=== PATIENT | female | born 1965 | race African-American/Black ===

== ENCOUNTER 2017-07-10 12:31 | Inpatient (IN) | payer BC ==
[2017-07-10 12:48] VITALS: BMI 37.3
--- NOTE | 2017-07-10 14:40 | HP ---
CIWA Score - CIWA Score Nausea/Vomitin-No Nausea/No Vomiting Muscle Tremors: 3 Anxiety: 4-Mod. Anxious/Guarded Agitation: 4-Moderately Restless Paroxysmal Sweats: 1-Minimal Palms Moist Orientation: 0-Oriented Tacttile Disturbances: 0-None Auditory Disturbances: 0-None Visual Disturbances: 0-None Headache: 2-Mild CIWA-Ar Total Score: 14 Admission ROS BHS - HPI Chief Complaint: WITHDRAWAL SX FROM ALCOHOL Allergies/Adverse Reactions: Allergies Allergy/AdvReac Type Severity Reaction Status Date / Time No Known Allergies Allergy Verified 07/10/17 13:39 History of Present Illness: 52 Y/O AA/FEMALE WITH A HX OF ALCOHOL AND CRACK/COCAINE DEPENDENCE SEEKING DETOX TX. THIS IS PT'S FIRST TIME HERE. Exam Limitations: Clinical Condition - Ebola screening Have you traveled outside of the country in the last 21 days: No Have you had contact with anyone from an Ebola affected area: No Have you been sick,other than usual withdrawal symptoms: No Do you have a fever: No - Review of Systems Constitutional: Night Sweats, Changes in sleep (TAKES SLEEPING MED) EENT: reports: Blurred Vision (WEARS GLASSES), Tearing, Dental Problems (UPPER PATIAL PLATE) Respiratory: reports: No Symptoms reported Cardiac: reports: Lightheadedness, Palpitations (IN THE PAST), Chest Tightness GI: reports: Diarrhea : reports: No Symptoms Reported Musculoskeletal: reports: Muscle Pain Integumentary: reports: No Symptoms Reported Neuro: reports: Headache Endocrine: reports: No Symptoms Reported Hematology: reports: Other (SICKLE CELL TRAIT;HGB C TRAIT) Psychiatric: reports: Orientated x3, Anxious, Depressed Other Systems: Reviewed and Negative Patient History - Patient Medical History Hx Anemia: Yes (IRON SUPPLEMENT IN THE PAST) Hx Asthma: No Hx Chronic Obstructive Pulmonary Disease (COPD): No Hx Cardiac Disorders: Yes (SVT-ABLATION TREATMENT IN JUNE 2013) Hx Hypertension: Yes (on medication-ON VERAPAMIL 240 MG PO DAILY) Hx Hypercholesterolemia: No Hx Pacemaker: No HX Cerebrovascular Accident: No Hx Seizures: No Hx Diabetes: No Hx Gastrointestinal Disorders: Yes (DYSPEPSIA-NO MEDS) Hx Genitourinary Disorders: Yes (UTI IN THE PAST) Hx Sexually Transmitted Disorders: Yes (gonnorhea, syphillis, herpes) Hx Renal Disease (ESRD): No Hx Thyroid Disease: No Hx Human Immunodeficiency Virus (HIV): No (NEGATIVE HX) Hx Hepatitis C: No Hx Depression: Yes (ON MEDS) Hx Suicide Attempt: Yes (one attempt [id number] slash wrist;DENIES CURRENT S/I) Hx Schizophrenia: No - Patient Surgical History Past Surgical History: Yes Hx Neurologic Surgery: No Hx Cataract Extraction: No Hx Cardiac Surgery: Yes (cardiac ablation 2013) Hx Lung Surgery: No Hx Breast Surgery: No Hx Breast Biopsy: No Hx Abdominal Surgery: Yes (Fibrystic cyst) Hx Appendectomy: No Hx Cholecystectomy: No Hx Genitourinary Surgery: No Hx Section: Yes (X6) Hx Orthopedic Surgery: No Other Surgical History: Biopst left cavicle Anesthesia Reaction: No - PPD History Previous Implant?: Yes Documented Results: Positive w/o proof Implanted On Prior [facility] Admission?: No Results: CXR TBD PPD to be Administered?: No - Reproductive History Patient is a Female of Child Bearing Age (11 -55 yrs old): Yes Last Menstrual Period: 09/25/11 Patient : No - Smoking Cessation Smoking history: Current every day smoker Have you smoked in the past 12 months: Yes Aproximately how many cigarettes per day: 6 Hx Chewing Tobacco Use: No Initiated information on smoking cessation: Yes 'Breaking Loose' booklet given: 07/10/17 - Substance & Tx. History Hx Alcohol Use: Yes (BEER) Hx Substance Use: Yes (COCAINE) Substance Use Type: Alcohol, Cocaine Hx Substance Use Treatment: Yes (LAST TX AT [facility]) - Substances Abused Alcohol Route: Oral Frequency: 3-6 times per week Amount used: 6Pk- 120z Age of first use: 16 Date of Last Use: 07/09/17 Cocaine Route: Smoking Frequency: 1-3 times last 30 days Amount used: $70 Age of first use: 21 Date of Last Use: 07/09/17 Family Disease History - Family Disease History Family Disease History: Other: Mother (HTN;ALCOHOLISM) Other Family History: AUNTS AND UNCLES WITH ALCOHOLISM Admission Physical Exam BHS - Vital Signs Vital Signs: Vital Signs - 24 hr 07/10/17 12:44 Temperature 97.9 F Pulse Rate 62 Respiratory 20 Rate Blood Pressure 143/81 - Physical General Appearance: Yes: Moderate Distress, Irritable, Anxious HEENTM: Yes: EOMI, Normocephalic, DALE, Pharynx Normal Respiratory: Yes: Chest Non-Tender, Lungs Clear, Normal Breath Sounds, No Respiratory Distress Neck: Yes: No masses,lesions,Nodules, Supple, Trachea in good position Breast: Yes: Breast Exam Deferred Cardiology: Yes: Regular Rhythm, Regular Rate, S1, S2 Abdominal: Yes: Normal Bowel Sounds, Non Tender, Soft, Protuberent Genitourinary: Yes: Other (N/C) Back: Yes: Within Normal Limits Musculoskeletal: Yes: full range of Motion, Gait Steady Extremities: Yes: Normal Range of Motion, Non-Tender Neurological: Yes: manager fleet II-XII NML intact, Fully Oriented, Alert, Motor Strength 5/5 Integumentary: Yes: Dry, Warm Lymphatic: Yes: Within Normal Limits - Diagnostic (1) Alcohol dependence with uncomplicated withdrawal Current Visit: Yes Status: Acute (2) Cocaine dependence, uncomplicated Current Visit: Yes Status: Acute (3) Hypertension Current Visit: Yes Status: Chronic Qualifiers: Hypertension type: essential hypertension Qualified Code(s): I10 - Essential (primary) hypertension (4) History of anemia Current Visit: Yes Status: Suspected (5) Sickle cell trait Current Visit: Yes Status: Chronic (6) Personal history of supraventricular tachycardia Current Visit: Yes Status: Resolved Cleared for Admission [facility] - Detox or Rehab [facility] Level of Care: Medically Managed Detox Regimen/Protocol: Librium S Breath Alcohol Content Breath Alcohol Content: 0 Urine Pregancy Test - Result Urine Test Results: Negative- NO Line Present Urine Drug Screen - Results Drug Screen Negative: No Urine Drug Screen Results: SAM-Cocaine
[2017-07-10] MEDS ORDERED: hydrOXYzine PAMOATE 50 MG CAPSULE (FP) PO PRN (15:04)
[2017-07-10] MEDS ORDERED: MAG HYDROX/AL HYDROX/SIMETH 30 ML UNIT-DOSE CUP PO PRN (15:04)
[2017-07-10] MEDS ORDERED: ACETAMINOPHEN 325 MG TABLET (FP) PO PRN (15:04)
[2017-07-10] MEDS ORDERED: P-EPHED 60MG/TRIPROLIDI 2.5MG TABLET PO PRN (15:04)
[2017-07-10] MEDS ORDERED: MENTHOL/PHENOL 1 EACH UD MM PRN (15:04)
[2017-07-10] MEDS ORDERED: MAGNESIUM HYDROX 2400MG/30ML ORAL SUSPENSION 30 ML CUP PO PRN (15:04)
[2017-07-10] MEDS ORDERED: chlordiazePOXIDE HCL 25 MG CAPSULE PO PRN (15:04)
[2017-07-10] MEDS ORDERED: NICOTINE POLACRILEX 2 MG GUM BC PRN (15:04)
[2017-07-10] MEDS ORDERED: MAGNESIUM CITRATE 300 ML BOTTLE PO PRN (15:04)
[2017-07-10] MEDS ORDERED: guaiFENesin/D-METHORPHAN HB 10 ML UNIT-DOSE CUPS PO PRN (15:04)
[2017-07-10] MEDS ORDERED: LOPERAMIDE HCL 2 MG CAPSULE PO PRN (15:04)
[2017-07-10] MEDS ORDERED: IBUPROFEN 400 MG TABLET (FP) PO PRN (15:04)
[2017-07-10] MEDS ORDERED: NITROGLYCERIN SUBLINGUAL 1/150 0.4 MG TAB SL PRN (15:13)
[2017-07-10] MEDS ORDERED: chlordiazePOXIDE HCL 25 MG CAPSULE PO ONE (15:45)
[2017-07-10] MEDS: METOPROLOL TARTRATE 50 MG TABLET (FP) PO SCH (18:20)
[2017-07-10] MEDS: VERAPAMIL HCL 240 MG E.R. TABLET (FP) PO SCH (18:20)
[2017-07-10] MEDS: ASPIRIN COATED 81 MG TABLET.EC PO SCH (18:20)
[2017-07-10] MEDS: NICOTINE 14 MG/24 HOURS TOPICAL PATCH TD SCH (18:25)
[2017-07-10] MEDS: chlordiazePOXIDE HCL 25 MG CAPSULE PO SCH ×2 (18:34→22:37)
[2017-07-10] MEDS ORDERED: MELATONIN 5 MG TABLETS PO PRN (22:00)
[2017-07-10] MEDS: THIAMINE HCL 100 MG TABLET (FP) PO SCH (22:37)
[2017-07-11] MEDS: chlordiazePOXIDE HCL 25 MG CAPSULE PO SCH ×4 (06:14→22:44)
[2017-07-11 10:26] LABS: HEMOGLOBIN 14.3 GM/dL (10.7-15.3); MCH 28.6 pg (25.7-33.7); MCHC 34.8 g/dl (32.0-36.0); MEAN CELL VOLUME 82.2 fl (80-96); MEAN PLT VOLUME 8.6 fl (7.5-11.1); PLATELET COUNT 268 K/MM3 (134-434); RBC 4.99 M/mm3 (3.60-5.2); RDW 15.1 % (11.6-15.6); WHITE BLOOD COUNT 6.8 K/mm3 (4.0-10.0)
[2017-07-11] MEDS: SERTRALINE HCL 50 MG TABLET (FP) PO SCH (10:29)
[2017-07-11] MEDS: METOPROLOL TARTRATE 50 MG TABLET (FP) PO SCH (10:29)
[2017-07-11] MEDS: VERAPAMIL HCL 240 MG E.R. TABLET (FP) PO SCH (10:29)
[2017-07-11] MEDS: PRENATAL VITAMINS W/ FOLIC ACID TABLET (FP) PO SCH (10:29)
[2017-07-11] MEDS: ASPIRIN COATED 81 MG TABLET.EC PO SCH (10:29)
[2017-07-11] MEDS: NICOTINE 14 MG/24 HOURS TOPICAL PATCH TD SCH (10:31)
--- NOTE | 2017-07-11 10:37 | CONSULT ---
[facility] Psychiatric Consult - Data Date of interview: 07/11/17 Admission source: [facility] Identifying data: This is 52 years old female, single mother of six, living with boyfriend, unemployed on SSI, with no psychiatric hospitalizatiojn history , with history of Alcohol, Cocaine Nicotine dependence, seeking for detos, reporting withdrawal symptoms. Substance Abuse History: Smoking history: Current every day smoker. Have you smoked in the past 12 months: Yes. Aproximately how many cigarettes per day: 6. Hx Chewing Tobacco Use: No. Initiated information on smoking cessation: Yes. 'Breaking Loose' booklet given: 07/10/17. - Substance & Tx. History. Hx Alcohol Use: Yes (BEER). Hx Substance Use: Yes (COCAINE). Substance Use Type: Alcohol, Cocaine. Hx Substance Use Treatment: Yes (LAST TX AT [facility]). - Substances Abused. Alcohol. Route: Oral. Frequency: 3-6 times per week. Amount used: 6Pk- 120z. Age of first use: 16. Date of Last Use: 07/09/17. Cocaine. Route: Smoking. Frequency: 1-3 times last 30 days. Amount used: $ 70. Age of first use: 21. Date of Last Use: 07/09/17 Medical History: HTN, Anemia history, Sickle Cell Trait history, Superventricular thachicardia hisotry. Psychiatric History: Patient reports history of depression and anxiety, no psychiatric hospitalization history, reports taking prior to admission: Zoloft 100mg po nqhs. Abilify 5mg po qhs. Denies suicidal, homicidal history Physical/Sexual Abuse/Trauma History: Denies Additional Comment: Zoloft 100mg po nqhs. Abilify 5mg po qhs Mental Status Exam - Mental Status Exam Alert and Oriented to: Place, Person Cognitive Function: Fair Patient Appearance: Well Groomed Mood: Apprehensive Affect: Mood Congruent Patient Behavior: Cooperative Speech Pattern: Appropriate Voice Loudness: Normal Thought Process: Goal Oriented Thought Disorder: Being Controlled Hallucinations: Denies Suicidal Ideation: Denies Homicidal Ideation: Denies Insight/Judgement: Fair Sleep: Difficulty falling asleep Appetite: Weight gain Muscle strength/Tone: Normal Gait/Station: Normal Additional Comments: Zoloft 100mg po nqhs. Abilify 5mg po qhs Psychiatric Findings - Problem List ([place] 1, 2,3) (1) Nicotine dependence Current Visit: Yes Status: Acute (2) Drug-induced mood disorder Current Visit: Yes Status: Acute (3) Alcohol dependence with uncomplicated withdrawal Current Visit: Yes Status: Acute (4) Cocaine dependence, uncomplicated Current Visit: Yes Status: Acute - Initial Treatment Plan Initial Treatment Plan: Zoloft 100mg po nqhs. Abilify 5mg po qhs. Vistaril 50mg po prn q4 for anxiety and agitation.
[2017-07-11 11:14] LABS: ALBUMIN 3.3 g/dl (3.4-5.0); ANION GAP 8 (8-16); BILIRUBIN,TOTAL 0.2 mg/dL (0.2-1.0); BLOOD UREA NITROGEN 9 mg/dL (7-18); CALCIUM 8.7 mg/dL (8.5-10.1); CHLORIDE 109 mmol/L (98-107); CO2 28 mmol/L (21-32); CREATININE 0.8 mg/dL (0.55-1.02); GLUCOSE,RANDOM 78 mg/dL (74-106); POTASSIUM 5.3 mmol/L (3.5-5.1); SGOT/AST 15 U/L (15-37); SGPT/ALT 21 U/L (12-78); SODIUM 145 mmol/L (136-145)
[2017-07-11 11:15] LABS: ALK PHOS 127 U/L (45-117); TOT PROT 7.5 g/dl (6.4-8.2)
[2017-07-11 11:43] LABS: SICKLE CELL SCREEN NEGATIVE (NEGATIVE)
--- NOTE | 2017-07-11 11:55 | EKG ---
Test Reason : Blood Pressure : / mmHG Vent. Rate : 061 BPM Atrial Rate : 061 BPM P-R Int : 138 ms QRS Dur : 082 ms QT Int : 450 ms P-R-T Axes : 059 029 037 degrees QTc Int : 453 ms NORMAL SINUS RHYTHM WITH SINUS ARRHYTHMIA NORMAL ECG NO PREVIOUS ECGS AVAILABLE Confirmed by JOSEPH STAHL, LISA ([id number]) on 07/11/2017 11:54:54 AM Referred By: Confirmed By:LISA RUIZ MD
--- NOTE | 2017-07-11 12:20 | PN ---
S CIWA - CIWA Score Nausea/Vomitin-Mild Nausea/No Vomiting Muscle Tremors: 4-Moderate,w/Arms Extend Anxiety: 3 Agitation: 2 Paroxysmal Sweats: 1-Minimal Palms Moist Orientation: 0-Oriented Tacttile Disturbances: 1-Very Mild Itch/Numbness Auditory Disturbances: 0-None Visual Disturbances: 0-None Headache: 0-None Present CIWA-Ar Total Score: 12 BHS Progress Note (SOAP) Subjective: sweat tremor anxiety restlessness Objective: 07/11/17 12:20 Vital Signs Temperature 98.1 F 07/11/17 11:04 Pulse Rate 79 07/11/17 11:04 Respiratory Rate 18 07/11/17 11:04 Blood Pressure 117/66 07/11/17 11:04 O2 Sat by Pulse Oximetry (%) Laboratory Last Values WBC 6.8 K/mm3 (4.0-10.0) 07/11/17 06:00 RBC 4.99 M/mm3 (3.60-5.2) 07/11/17 06:00 Hgb 14.3 GM/dL (10.7-15.3) 07/11/17 06:00 Hct 41.0 % (32.4-45.2) 07/11/17 06:00 MCV 82.2 fl (80-96) 07/11/17 06:00 MCH 28.6 pg (25.7-33.7) 07/11/17 06:00 MCHC 34.8 g/dl (32.0-36.0) 07/11/17 06:00 RDW 15.1 % (11.6-15.6) 07/11/17 06:00 Plt Count 268 K/MM3 (134-434) 07/11/17 06:00 MPV 8.6 fl (7.5-11.1) 07/11/17 06:00 Sickle Cell Screen Negative (NEGATIVE) 07/11/17 06:00 Sodium 145 mmol/L (136-145) 07/11/17 06:00 Potassium 5.3 mmol/L (3.5-5.1) H 07/11/17 06:00 Chloride 109 mmol/L (98-107) H 07/11/17 06:00 Carbon Dioxide 28 mmol/L (21-32) 07/11/17 06:00 Anion Gap 8 (8-16) 07/11/17 06:00 BUN 9 mg/dL (7-18) 07/11/17 06:00 Creatinine 0.8 mg/dL (0.55-1.02) 07/11/17 06:00 Creat Clearance w eGFR > 60 (>60) 07/11/17 06:00 Random Glucose 78 mg/dL (74-106) 07/11/17 06:00 Calcium 8.7 mg/dL (8.5-10.1) 07/11/17 06:00 Total Bilirubin 0.2 mg/dL (0.2-1.0) 07/11/17 06:00 AST 15 U/L (15-37) 07/11/17 06:00 ALT 21 U/L (12-78) 07/11/17 06:00 Alkaline Phosphatase 127 U/L (45-117) H 07/11/17 06:00 Total Protein 7.5 g/dl (6.4-8.2) 07/11/17 06:00 Albumin 3.3 g/dl (3.4-5.0) L 07/11/17 06:00 RPR Titer Nonreactive (NONREACTIVE) 07/11/17 06:00 lab noted K+ repeat Assessment: 07/11/17 12:21 withdrawal sx Plan: continue detox repeat K+ lab informed
[2017-07-11] MEDS: ARIPiprazole 5 MG TABLET (FP) PO SCH (22:44)
[2017-07-11] MEDS: THIAMINE HCL 100 MG TABLET (FP) PO SCH (22:44)
[2017-07-12] MEDS: chlordiazePOXIDE HCL 25 MG CAPSULE PO SCH ×2 (05:52→11:10)
--- NOTE | 2017-07-12 10:11 | PN ---
[facility] CIWA - CIWA Score Nausea/Vomitin-No Nausea/No Vomiting Muscle Tremors: 3 Anxiety: 2 Agitation: 2 Paroxysmal Sweats: 1-Minimal Palms Moist Orientation: 0-Oriented Tacttile Disturbances: 2-Mild Itch/Numbness/Burn Auditory Disturbances: 0-None Visual Disturbances: 0-None Headache: 1-Very Mild CIWA-Ar Total Score: 11 S Progress Note (SOAP) Subjective: tremor sweat anxiety restlessness trouble sleep at night Objective: 07/12/17 10:11 Vital Signs Temperature 97.5 F L 07/12/17 09:20 Pulse Rate 89 07/12/17 09:20 Respiratory Rate 20 07/12/17 09:20 Blood Pressure 134/85 07/12/17 09:20 O2 Sat by Pulse Oximetry (%) Laboratory Last Values WBC 6.8 K/mm3 (4.0-10.0) 07/11/17 06:00 RBC 4.99 M/mm3 (3.60-5.2) 07/11/17 06:00 Hgb 14.3 GM/dL (10.7-15.3) 07/11/17 06:00 Hct 41.0 % (32.4-45.2) 07/11/17 06:00 MCV 82.2 fl (80-96) 07/11/17 06:00 MCH 28.6 pg (25.7-33.7) 07/11/17 06:00 MCHC 34.8 g/dl (32.0-36.0) 07/11/17 06:00 RDW 15.1 % (11.6-15.6) 07/11/17 06:00 Plt Count 268 K/MM3 (134-434) 07/11/17 06:00 MPV 8.6 fl (7.5-11.1) 07/11/17 06:00 Sickle Cell Screen Negative (NEGATIVE) 07/11/17 06:00 Sodium 145 mmol/L (136-145) 07/11/17 06:00 Potassium 3.6 mmol/L (3.5-5.1) 07/11/17 12:00 Chloride 109 mmol/L (98-107) H 07/11/17 06:00 Carbon Dioxide 28 mmol/L (21-32) 07/11/17 06:00 Anion Gap 8 (8-16) 07/11/17 06:00 BUN 9 mg/dL (7-18) 07/11/17 06:00 Creatinine 0.8 mg/dL (0.55-1.02) 07/11/17 06:00 Creat Clearance w eGFR > 60 (>60) 07/11/17 06:00 Random Glucose 78 mg/dL (74-106) 07/11/17 06:00 Calcium 8.7 mg/dL (8.5-10.1) 07/11/17 06:00 Total Bilirubin 0.2 mg/dL (0.2-1.0) 07/11/17 06:00 AST 15 U/L (15-37) 07/11/17 06:00 ALT 21 U/L (12-78) 07/11/17 06:00 Alkaline Phosphatase 127 U/L (45-117) H 07/11/17 06:00 Total Protein 7.5 g/dl (6.4-8.2) 07/11/17 06:00 Albumin 3.3 g/dl (3.4-5.0) L 07/11/17 06:00 RPR Titer Nonreactive (NONREACTIVE) 07/11/17 06:00 HIV 1&2 Antibody Screen Negative 07/11/17 06:00 HIV P24 Antigen Negative 07/11/17 06:00 lab noted Assessment: 07/12/17 10:12 withdrawal sx Plan: continue detox
[2017-07-12] MEDS: NICOTINE 14 MG/24 HOURS TOPICAL PATCH TD SCH (11:10)
[2017-07-12] MEDS: PRENATAL VITAMINS W/ FOLIC ACID TABLET (FP) PO SCH (11:10)
[2017-07-12] MEDS: METOPROLOL TARTRATE 50 MG TABLET (FP) PO SCH (11:10)
[2017-07-12] MEDS: ASPIRIN COATED 81 MG TABLET.EC PO SCH (11:10)
[2017-07-12] MEDS: SERTRALINE HCL 50 MG TABLET (FP) PO SCH (11:10)
[2017-07-12] MEDS: VERAPAMIL HCL 240 MG E.R. TABLET (FP) PO SCH (11:11)
[2017-07-12] MEDS: chlordiazePOXIDE 5 MG CAPSULE PO SCH ×2 (17:24→22:20)
[2017-07-12] MEDS: ARIPiprazole 5 MG TABLET (FP) PO SCH (22:20)
[2017-07-12] MEDS: THIAMINE HCL 100 MG TABLET (FP) PO SCH (22:20)
[2017-07-13] MEDS: chlordiazePOXIDE 5 MG CAPSULE PO SCH ×2 (06:18→10:32)
[2017-07-13] MEDS: METOPROLOL TARTRATE 50 MG TABLET (FP) PO SCH (10:31)
[2017-07-13] MEDS: SERTRALINE HCL 50 MG TABLET (FP) PO SCH (10:31)
[2017-07-13] MEDS: ASPIRIN COATED 81 MG TABLET.EC PO SCH (10:31)
[2017-07-13] MEDS: VERAPAMIL HCL 240 MG E.R. TABLET (FP) PO SCH (10:32)
[2017-07-13] MEDS: PRENATAL VITAMINS W/ FOLIC ACID TABLET (FP) PO SCH (10:32)
[2017-07-13] MEDS: NICOTINE 14 MG/24 HOURS TOPICAL PATCH TD SCH (10:32)
--- NOTE | 2017-07-13 14:37 | PN ---
S Progress Note (SOAP) Subjective: alert,irritable,interrupted sleep Objective: 07/13/17 14:36 Vital Signs Temperature 97.9 F 07/13/17 14:15 Pulse Rate 74 07/13/17 14:15 Respiratory Rate 20 07/13/17 14:15 Blood Pressure 101/53 07/13/17 14:15 O2 Sat by Pulse Oximetry (%) Assessment: 07/13/17 14:36 withdrawal symptom Plan: continue detox,discharge in am
[2017-07-13 14:53] LABS: URINE APPEARANCE CLEAR; URINE BILIRUBIN NEGATIVE (<2.0 mg/dL); URINE BLOOD NEGATIVE (NEGATIVE); URINE COLOR LTYELLOW; URINE GLUCOSE (UA) NEGATIVE (NEGATIVE); URINE KETONE NEGATIVE (NEGATIVE); URINE LEUK ESTERASE NEGATIVE (NEGATIVE); URINE NITRITE NEGATIVE (NEGATIVE); URINE PROTEIN NEGATIVE (NEGATIVE); URINE UROBILINOGEN NEGATIVE mg/dL (0.2-1.0)
[2017-07-13] MEDS: chlordiazePOXIDE HCL 10 MG CAPSULE PO SCH ×2 (18:04→22:20)
[2017-07-13] MEDS: ARIPiprazole 5 MG TABLET (FP) PO SCH (22:20)
[2017-07-13] MEDS: THIAMINE HCL 100 MG TABLET (FP) PO SCH (22:20)
[2017-07-14] MEDS: chlordiazePOXIDE HCL 10 MG CAPSULE PO SCH (05:24)
[2017-07-14 07:16] VITALS: BP 107/64; PULSE 82; TEMP 97.7
--- NOTE | 2017-07-14 09:30 | PN ---
S Progress Note (SOAP) Subjective: alert,no complaint Objective: 07/14/17 09:28 Vital Signs Temperature 97.7 F 07/14/17 07:15 Pulse Rate 82 07/14/17 07:15 Respiratory Rate 18 07/14/17 07:15 Blood Pressure 107/64 07/14/17 07:15 O2 Sat by Pulse Oximetry (%) Assessment: 07/14/17 09:29 detox completed,no withdrawal symptom Plan: discharge today,follow up with after care program as arrangement
--- NOTE | 2017-07-14 09:33 | DS ---
[facility] Detox Discharge Summary Admission Date: 07/10/17 Discharge Date: 07/14/17 - History Present History: Alcohol Dependence, Cocaine Dependence Additional Comments: follow up with after care program as arrangement Pertinent Past History: hypertension nicotine dependence - Physical Exam Results Vital Signs: Vital Signs Temperature 97.7 F 07/14/17 07:15 Pulse Rate 82 07/14/17 07:15 Respiratory Rate 18 07/14/17 07:15 Blood Pressure 107/64 07/14/17 07:15 O2 Sat by Pulse Oximetry (%) Pertinent Admission Physical Exam Findings: withdrawal signs and symptom Laboratory Last Values WBC 6.8 K/mm3 (4.0-10.0) 07/11/17 06:00 RBC 4.99 M/mm3 (3.60-5.2) 07/11/17 06:00 Hgb 14.3 GM/dL (10.7-15.3) 07/11/17 06:00 Hct 41.0 % (32.4-45.2) 07/11/17 06:00 MCV 82.2 fl (80-96) 07/11/17 06:00 MCH 28.6 pg (25.7-33.7) 07/11/17 06:00 MCHC 34.8 g/dl (32.0-36.0) 07/11/17 06:00 RDW 15.1 % (11.6-15.6) 07/11/17 06:00 Plt Count 268 K/MM3 (134-434) 07/11/17 06:00 MPV 8.6 fl (7.5-11.1) 07/11/17 06:00 Sickle Cell Screen Negative (NEGATIVE) 07/11/17 06:00 Sodium 145 mmol/L (136-145) 07/11/17 06:00 Potassium 3.6 mmol/L (3.5-5.1) 07/11/17 12:00 Chloride 109 mmol/L (98-107) H 07/11/17 06:00 Carbon Dioxide 28 mmol/L (21-32) 07/11/17 06:00 Anion Gap 8 (8-16) 07/11/17 06:00 BUN 9 mg/dL (7-18) 07/11/17 06:00 Creatinine 0.8 mg/dL (0.55-1.02) 07/11/17 06:00 Creat Clearance w eGFR > 60 (>60) 07/11/17 06:00 Random Glucose 78 mg/dL (74-106) 07/11/17 06:00 Calcium 8.7 mg/dL (8.5-10.1) 07/11/17 06:00 Total Bilirubin 0.2 mg/dL (0.2-1.0) 07/11/17 06:00 AST 15 U/L (15-37) 07/11/17 06:00 ALT 21 U/L (12-78) 07/11/17 06:00 Alkaline Phosphatase 127 U/L (45-117) H 07/11/17 06:00 Total Protein 7.5 g/dl (6.4-8.2) 07/11/17 06:00 Albumin 3.3 g/dl (3.4-5.0) L 07/11/17 06:00 Urine Color Ltyellow 07/13/17 10:15 Urine Appearance Clear 07/13/17 10:15 Urine pH 6.0 (5.0-8.0) 07/13/17 10:15 Ur Specific Simpson 1.018 (1.001-1.035) 07/13/17 10:15 Urine Protein Negative (NEGATIVE) 07/13/17 10:15 Urine Glucose (UA) Negative (NEGATIVE) 07/13/17 10:15 Urine Ketones Negative (NEGATIVE) 07/13/17 10:15 Urine Blood Negative (NEGATIVE) 07/13/17 10:15 Urine Nitrite Negative (NEGATIVE) 07/13/17 10:15 Urine Bilirubin Negative (<2.0 mg/dL) 07/13/17 10:15 Urine Urobilinogen Negative mg/dL (0.2-1.0) 07/13/17 10:15 Ur Leukocyte Esterase Negative (NEGATIVE) 07/13/17 10:15 RPR Titer Nonreactive (NONREACTIVE) 07/11/17 06:00 HIV 1&2 Antibody Screen Negative 07/11/17 06:00 HIV P24 Antigen Negative 07/11/17 06:00 Vital Signs Temperature 97.7 F 07/14/17 07:15 Pulse Rate 82 07/14/17 07:15 Respiratory Rate 18 07/14/17 07:15 Blood Pressure 107/64 07/14/17 07:15 O2 Sat by Pulse Oximetry (%) - Treatment Hospital Course: Detox Protocol Followed, Detoxed Safely, Responded well, Discharged Condition Good Patient has Accepted a Rehab Referral to: declined - Medication Discharge Medications: Ambulatory Orders Abilify 5 mg PO HS 07/10/17 Aspirin [Aspirin EC] 81 mg PO DAILY 07/10/17 Gabapentin 800 mg PO TID 07/10/17 Metoprolol Tartrate [Lopressor -] 50 mg PO DAILY 07/10/17 Nitroglycerin 0.4 mg PO PRN PRN 07/10/17 Sertraline HCl [Zoloft] 100 mg PO DAILY 07/10/17 Valacyclovir HCl [Valtrex -] 500 mg PO DAILY 07/10/17 Verapamil HCl [Calan Sr] 240 mg PO DAILY 07/10/17 hydrOXYzine PAMOATE [Vistaril -] 50 mg PO HS 07/10/17 Aripiprazole [Abilify] 5 mg PO HS #30 tablet 07/11/17 Aripiprazole [Abilify] 5 mg PO HS #30 tablet 07/11/17 Sertraline HCl [Zoloft] 100 mg PO HS #30 tablet 07/11/17 - Diagnosis (1) Alcohol dependence with uncomplicated withdrawal Current Visit: Yes Status: Acute (2) Nicotine dependence Current Visit: Yes Status: Acute Qualifiers: Nicotine product type: cigarettes Substance use status: in withdrawal Qualified Code(s): F17.213 - Nicotine dependence, cigarettes, with withdrawal (3) Hypertension Current Visit: Yes Status: Chronic Qualifiers: Hypertension type: essential hypertension Qualified Code(s): I10 - Essential (primary) hypertension - AMA Did Patient Leave Against Medical Advice: No
== END 2017-07-14 09:54 | disposition home or self-care (01) | DRG 774 ==
LOC: YASAS 12:31 → Y6N 15:15
PROVIDERS: ADMIT Surgery; ATTEND Surgery
PROC: HZ2ZZZZ Detoxification Services for Substance Abuse Treatment (ICD-10-PCS; principal; 2017-07-10)
DX: F10.230 Alcohol dependence with withdrawal, uncomplicated (principal); F14.20 Cocaine dependence, uncomplicated; F17.213 Nicotine dependence, cigarettes, with withdrawal; F19.24 Other psychoactive substance dependence with psychoactive substance-induced mood disorder; I10 Essential (primary) hypertension; D57.3 Sickle-cell trait; Z87.42 Personal history of other diseases of the female genital tract; Z91.5 Personal history of self-harm
CPT/HCPCS: 36415; 71046-TC-FY; 80053; 81003; 84132; 85027; 85660; 86593; 87389; 93005; 93010